=== PATIENT | male | born 1990 | race Caucasian/White ===

== ENCOUNTER 2016-11-11 21:23 | Emergency (ER) | payer OTHER ==
[~2016-11-11] VITALS: Ht 182.9 cm; Wt 94.8 kg
[2016-11-11 21:26] VITALS: TEMP 36.7; Ht 182.9 cm; Wt 94.8 kg
[2016-11-11] MEDS ORDERED: FEXO1TAB46 PO (21:45)
[2016-11-11] MEDS ORDERED: DIPH25CA65 PO (21:45)
[2016-11-11] MEDS ORDERED: FLUT0.15 NAE (21:45)
--- NOTE | 2016-11-11 22:10 | DIAGNOSTIC IMAGING REPORT ---
CHEST 2 VIEWS ROUTINE HISTORY: cough COMPARISON: None. FINDINGS: The lungs are clear. Cardiac silhouette is normal in size. No pleural effusions. No pneumothorax. IMPRESSION: No acute process. Electronically signed by: Randall Moreno M.D. 11/11/2016 10:08 PM Dictated Date/Time: 11/11/2016 10:07 PM
--- NOTE | 2016-11-11 22:28 | EMERGENCY ROOM VISIT NOTE ---
History First contact with patient: 21:33 Chief Complaint: ILLNESS Stated Complaint: SEASONAL ALLERGIES, RUNNY NOSE History of Present Illness The patient is a 26 year old male who presents to the Emergency Room with complaints of seasonal allergies. The patient states that he has problems with seasonal allergies in a year. He reports that over the past few weeks, he has had increased sneezing, coughing, itchy eyes and occasional shortness of breath with exertion. He does report he has headaches intermittently. The patient has been using Flonase for the past one week. He states he has been taking Paola for the past one month for his symptoms as well. He takes Benadryl nightly to help him sleep. He has never seen a specialist for his symptoms. He denies any neck pain, chest pain, fevers or chills. Review of Systems A complete 10-point Review of Systems was discussed with the patient, with pertinent positives and negatives listed in the History of Present Illness. All remaining Review of Systems questions can be considered negative unless otherwise specified. Social History Smoking Status: Never Smoker Current/Historical Medications Scheduled Diphenhydramine Hcl (Benadryl Allergy), 1 CAP PO HS Fexofenadine Hcl (Paola), 180 MG PO DAILY Fluticasone Propionate (Nasal) (Flonase Allergy Relief), 3 SPRAYS JACE DAILY Allergies Coded Allergies: NO KNOWN DRUG ALLERGIES (Verified Allergy, Unknown, none, 11/11/16) Physical Exam Vital Signs Date Time Temp Pulse Resp B/P Pulse Ox O2 Delivery O2 Flow Rate FiO2 11/11/16 22:58 61 18 132/77 98 11/11/16 21:26 36.7 72 16 155/97 97 Room Air Physical Exam VITALS: Vitals are noted on the nurse's note and reviewed by myself. Vital signs stable. GENERAL: This is a 26-year-old male, in no acute distress, nondiaphoretic, well- developed well-nourished. SKIN: The skin was without rashes. EARS: External auditory canals clear, tympanic membranes pearly warren without erythema or effusion bilaterally. EYES: Pupils equal round and reactive to light and accommodation. Conjunctivae mildly injected. NOSE: Patent, turbinates mildly inflamed without discharge. MOUTH: Mucous membranes moist. Posterior pharynx slightly erythematous with postnasal drip. NECK: Supple without nuchal rigidity. No lymphadenopathy. HEART: Regular rate and rhythm without murmurs gallops or rubs. LUNGS: Clear to auscultation bilaterally without wheezes, rales or rhonchi. NEURO: Patient was alert and oriented to person place and time. Medical Decision & Procedures ER Provider Diagnostic Interpretation: CHEST 2 VIEWS ROUTINE HISTORY: cough COMPARISON: None. FINDINGS: The lungs are clear. Cardiac silhouette is normal in size. No pleural effusions. No pneumothorax. IMPRESSION: No acute process. Medications Administered Medications (Trade) Dose Ordered Sig/Ky Route Start Time Stop Time Status Last Admin Dose Admin Albuterol (Ventolin Hfa Inhaler) 2 puffs NOW ONCE INH 11/11/16 22:30 11/11/16 22:31 DC 11/11/16 22:55 2 PUFFS Medical Decision Differential diagnosis includes upper respiratory infection, seasonal allergies , pneumonia, among others. The patient was evaluated as above. Chest x-ray is unremarkable. Symptoms are consistent with seasonal allergies. He does not appear to have a sinusitis. The patient was instructed to continue his current treatment and to see an cloud automation tester within the next few weeks for further evaluation. He verbalized understanding of my assessment and treatment plan and was discharged home in good condition. Impression Primary Impression: Seasonal allergies Departure Information Dispostion Home / Self-Care Condition GOOD Referrals No Doctor, Assigned (PCP) Patient Instructions [facility] Additional Instructions Continue the antihistamine that you have been taking. You may also continue to use the Flonase daily. Use the Ventolin inhaler as needed for cough/shortness of breath. You will need to follow-up with an cloud automation tester for further evaluation of your ongoing symptoms. Problem Qualifiers Primary Impression: Seasonal allergies Allergic rhinitis trigger: unspecified Qualified Codes: J30.2 - Other seasonal allergic rhinitis
[2016-11-11] MEDS ORDERED: ALBUTEROL HFA 8 GM INHALER INH ONE (22:30)
[2016-11-11 22:58] VITALS: BP 132/77; PULSE 61; O2SAT 98
== END 2016-11-11 22:59 | disposition home or self-care (01) ==
LOC: C.EDB 21:26 → C.EDC 22:59
DX: J30.2 Other seasonal allergic rhinitis (principal); Z79.899 Other long term (current) drug therapy